=== PATIENT | male | born 1980 | race Caucasian/White ===

== ENCOUNTER 2023-07-03 | Emergency (ER) | payer BC, SELFPAY ==
[2023-07-03] VITALS: BP 141/102; PULSE 102; RESP 19; TEMP 36.6; O2SAT 98; BMI 30.5
--- NOTE | 2023-07-03 00:20 | HMH.EDGENADL ---
Discharge Plan Disposition Patient Disposition: Home, Self-Care Condition: Good Prescriptions Prescriptions: No Action nadolol 80 mg tablet 80 mg PO DAILY Patient Comments: TAKE 1 TABLET BY MOUTH 1 TIME EACH DAY. pantoprazole 40 mg tablet,delayed release (DR/EC) 40 mg PO DAILY Patient Comments: TAKE 1 TABLET BY MOUTH EVERY DAY BEFORE BREAKFAST gabapentin 300 mg capsule 300 mg PO QID Patient Comments: PLEASE SEE ATTACHED FOR DETAILED DIRECTIONS folic acid 1 mg tablet 1 mg PO DAILY Patient Comments: TAKE 1 TABLET BY MOUTH EVERY DAY fluticasone propionate 50 mcg/actuation spray,suspension 2 spray INTRANASAL DAILY Patient Comments: INSTILL 1 SPRAY INTO EACH NOSTRIL 1 TIME PER DAY. SHAKE GENTLY. AFTER USE, CLEAN TIP AND REPLACE CAP loratadine 10 mg tablet 10 mg PO DAILY Patient Comments: TAKE 1 TABLET BY MOUTH EVERY DAY hydroxyzine pamoate 25 mg capsule 25 mg PO Q6HP PRN (Reason: Anxiety) Patient Comments: TAKE 1 CAPSULE BY MOUTH EVERY 6 HOURS NEEDED FOR ANXIETY bupropion HCl 150 mg tablet extended release 24 hr 450 mg PO DAILY Patient Comments: TAKE 3 TABLETS BY MOUTH OF A MORNING. DO NOT CRUSH, CHEW, OR SPLIT. mirtazapine 7.5 mg tablet 7.5 mg PO HS Patient Comments: TAKE 1 TABLET BY MOUTH EVERY DAY AT BEDTIME duloxetine 60 mg capsule,delayed release(DR/EC) 60 mg PO DAILY Patient Comments: TAKE 1 CAPSULE BY MOUTH EVERY DAY Vivitrol 380 mg suspension,extended rel recon 380 mg IM MONTHLY Referrals Follow up/Referrals: Nayely Rose MD [Primary Care Provider] - See instructions Activity Restrictions/Add. Instructions Additional Instructions/Restrictions: Please follow-up with your primary care provider. Please return to the emergency department if you develop any new or worsening symptoms or become concerned for your health. Clinical Impressions Clinical Impression: Dehydration after exertion Discharge ED Provider: Shahbaz Blackburn Adult HPI General Chief complaint: Weakness Stated complaint: Dehydrated Time Seen by Provider: 07/03/23 00:05 Mode of Arrival: EMS Source of Information: Patient Limitations: No Limitations Description of Symptoms (Recalled from ER Triage Doc. by RN): 43 M presents via EMS from local gas station after calling out for possible dehydration. Patient is a/o x3 on arrival and reports that he, had car touble in [facility] earlier today, so he walked towards [facility], but got lost until a Lead Instructor/Flight Attendant's [place] picked him up and took him to [employer] to drink some water. Patient is well groomed and acting appropriately otherwise. Patient adds that it's been 1.5 days since he took any of his medications. History of Present Illness HPI narrative: 43-year-old male presents with concern for dehydration. He reports to me that he was driving his car around and got lost and ran out of gas. He reports that he then had to walk a very long distance and was picked up by a police communications dispatcher and driven to a gas station at which point EMS was called. He is alert and oriented, but is hesitant in answering questions and is vague about the circumstances of the evening. He reports that he smokes 1 pack/day, reports that he previously drank alcohol, reports that he does use drugs and his last use was recently . He currently denies any chest pain abdominal pain shortness of breath ports that he was a little dizzy and had a headache earlier but currently does not have the symptoms. He reports that his mouth feels dry. Denies any recent fever or illness. Denies any recent trauma. 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
--- NOTE | 2023-07-03 00:23 | PC.NURSE ---
Patient given PO fluids for oral supplementation of fluids. Tolerating well and will continue care
[2023-07-03 02:07] VITALS: BP 143/89; PULSE 83; RESP 19; TEMP 36.9; O2SAT 97
== END 2023-07-03 02:07 | disposition home or self-care (01) ==
PROVIDERS: Emergency Provider Emergency Medicine; PCP Family Medicine
DX: E86.0 Dehydration (principal); F41.9 Anxiety disorder, unspecified; F32.A Depression, unspecified; K21.9 Gastro-esophageal reflux disease without esophagitis; I10 Essential (primary) hypertension; F17.200 Nicotine dependence, unspecified, uncomplicated
CPT/HCPCS: 99283